=== PATIENT | male | born 1995 | race African-American/Black ===

== ENCOUNTER 2017-08-22 21:37 | Emergency (ER) | payer OTHER | END 2017-08-23 02:06 | disposition home or self-care (01) | LOC: M ED 21:37 | DX: R31.0 Gross hematuria (principal); K40.90 Unilateral inguinal hernia, without obstruction or gangrene, not specified as recurrent; G89.29 Other chronic pain; M54.9 Dorsalgia, unspecified; F41.9 Anxiety disorder, unspecified; F33.9 Major depressive disorder, recurrent, unspecified; F17.210 Nicotine dependence, cigarettes, uncomplicated | CPT/HCPCS: 76775 ==

== ENCOUNTER 2017-10-18 05:43 | Day surgery (SDC) | payer OTHER ==
[2017-10-18] MEDS: LR 1,000 ML IV (06:22)
[2017-10-18] MEDS ORDERED: PROPOFOL 200 MG/20 ML VIAL As Ordered ×2 (06:57→08:27)
[2017-10-18] MEDS ORDERED: fentaNYL 250 MCG/5 ML INJECTION (J3010) As Ordered (06:58)
[2017-10-18] MEDS ORDERED: MIDAZOLAM INJ 2 MG/2 ML VIAL (J2250) As Ordered (06:58)
[2017-10-18] MEDS ORDERED: ROCURONIUM BROMIDE 50 MG/5 ML VIAL As Ordered ×2 (06:59→08:37)
[2017-10-18] MEDS ORDERED: dexameTHASONE 4 MG/ML 1ML VIAL (J1100) As Ordered (07:01)
[2017-10-18] MEDS ORDERED: KETOROLAC 60 MG/2 ML VIAL (J1885) As Ordered (07:01)
[2017-10-18] MEDS ORDERED: LR 1,000 ML IV ×2 (07:30→10:15)
[2017-10-18] MEDS: BUPIVACAINE HCL 0.25% 30 ML VIAL As Ordered (08:28)
[2017-10-18] MEDS ORDERED: NEOSTIGMINE 10 MG/10 ML VIAL (J2710) As Ordered (09:00)
[2017-10-18] MEDS ORDERED: GLYCOPYRROLATE INJ 0.2 MG/ML 2 ML VIAL As Ordered ×2 (09:01)
[2017-10-18] MEDS ORDERED: ONDANSETRON 4MG/2ML VIAL (J2405) As Ordered (09:59)
[2017-10-18] MEDS ORDERED: fentaNYL 100 MCG/2 ML INJECTION (J3010) As Ordered (09:59)
[2017-10-18] MEDS ORDERED: PERCOCET 5MG/325MG TAB As Ordered (09:59)
[2017-10-18] MEDS: fentaNYL 100 MCG/2 ML INJECTION (J3010) IV ×3 (10:05→10:21)
[2017-10-18] MEDS: PERCOCET 5MG/325MG TAB PO ×2 (10:05→10:32)
[2017-10-18] MEDS ORDERED: METOCLOPRAMIDE INJ 10MG/2ML VIAL (J2765) IV (10:15)
[2017-10-18] MEDS ORDERED: MEPERIDINE INJ 25 MG/ML VIAL (J2175) IV (10:15)
[2017-10-18] MEDS: ONDANSETRON 4MG/2ML VIAL (J2405) IV (10:20)
[2017-10-18] MEDS ORDERED: IBUPROFEN 600 MG TAB PO ×2 (10:30→13:00)
[2017-10-18] MEDS ORDERED: NORCO, ANEXSIA 5/325MG TABLET (HYDROcodone/ACETAMINOPHEN) PO (10:30)
[2017-10-18] MEDS ORDERED: ACETAMINOPHEN TAB 650MG DOSE (2X325MG) PO (10:30)
== END 2017-10-18 11:28 | disposition home or self-care (01) ==
LOC: M SDC 11:28
DX: K40.90 Unilateral inguinal hernia, without obstruction or gangrene, not specified as recurrent (principal); F17.210 Nicotine dependence, cigarettes, uncomplicated; Z79.899 Other long term (current) drug therapy
CPT/HCPCS: 49505

== ENCOUNTER 2017-11-24 19:22 | Emergency (ER) | payer OTHER ==
[2017-11-24] MEDS: IBUPROFEN 600 MG TAB PO (21:16)
== END 2017-11-24 21:42 | disposition home or self-care (01) ==
LOC: M ED 19:22
DX: S93.401A Sprain of unspecified ligament of right ankle, initial encounter (principal); X58.XXXA Exposure to other specified factors, initial encounter; Y92.89 Other specified places as the place of occurrence of the external cause
CPT/HCPCS: 73610

== ENCOUNTER 2018-02-14 04:10 | Emergency (ER) | payer OTHER ==
[2018-02-14 05:11] LABS: HEMATOCRIT 47.7 % (42.0-52.0); HEMOGLOBIN 15.6 g/dl (13.5-17.5); MEAN CORPUSCULAR HGB CONC 32.7 g/dl (32.0-36.5); MEAN CORPUSCULAR VOLUME 82.5 fl (80.0-96.0); PLATELET COUNT, AUTOMATED 194 10^3/uL (150-450); RED BLOOD COUNT 5.78 10^6/uL (4.30-6.10); RED CELL DISTRIBUTION WIDTH 12.7 % (11.5-14.5)
[2018-02-14 05:37] LABS: AMPHETAMINES LEVEL URINE NEGATIVE (NEGATIVE); BARBITURATES URINE NEGATIVE (NEGATIVE); BENZODIAZEPINES URINE POSITIVE (NEGATIVE); CANNABINOIDS URINE NEGATIVE (NEGATIVE); COCAINE METABOLITE URINE NEGATIVE (NEGATIVE); METHADONE URINE NEGATIVE (NEGATIVE); OPIATES URINE NEGATIVE (NEGATIVE); PHENCYCLIDINE URINE NEGATIVE (NEGATIVE)
[2018-02-14 05:48] LABS: ALBUMIN 4.3 GM/DL (3.2-5.2); ALBUMIN/GLOBULIN RATIO 1.16 (1.00-1.93); ALKALINE PHOSPHATASE 128 U/L (45-117); ALT/SGPT 47 U/L (12-78); ANION GAP 5 MEQ/L (8-16); AST/SGOT 27 U/L (7-37); BILIRUBIN,DIRECT 0.1 MG/DL (0.0-0.2); BILIRUBIN,TOTAL 0.6 MG/DL (0.2-1.0); BLOOD UREA NITROGEN 15 MG/DL (7-18); CALCIUM LEVEL 8.9 MG/DL (8.5-10.1); CARBON DIOXIDE LEVEL 32 MEQ/L (21-32); CHLORIDE LEVEL 104 MEQ/L (98-107); GLOMERULAR FILTRATION RATE > 60.0 (>60); GLUCOSE, FASTING 109 MG/DL (70-100); POTASSIUM SERUM 3.9 MEQ/L (3.5-5.1); SALICYLATE LEVEL < 1.7 MG/DL (5.0-30.0); SODIUM LEVEL 141 MEQ/L (136-145)
[2018-02-14 05:50] LABS: ACETAMINOPHEN LEVEL < 2.0 UG/ML (10.0-30.0); ETHYL ALCOHOL (ETHANOL) < 0.003 % (0.000-0.010)
== END 2018-02-14 07:07 | disposition home or self-care (01) ==
LOC: M ED 04:10
DX: R45.851 Suicidal ideations (principal); F41.9 Anxiety disorder, unspecified
CPT/HCPCS: G0480

== ENCOUNTER 2018-11-03 11:23 | Emergency (ER) | payer OTHER ==
[~2018-11-03] VITALS: Ht 180.3 cm; Wt 111.4 kg
[~2018-11-03 11:23] MED LIST: CELE1CAP9 PO; MUSCLE RELAXANT PO; ZANA4CAP PO; [UNRECOGNIZED DRUG - REMARK]
[2018-11-03] MEDS ORDERED: LIDOCAINE 1% SDV 5 ML VIAL DILUENT ONE (13:15)
[2018-11-03] MEDS ORDERED: EXPOSURE KIT-ADULT 7 DAY SUPPLY PO ONE (13:15)
[2018-11-03] MEDS ORDERED: cefTRIAXone SOD 250 MG VIAL (J0696) IM ONE (13:15)
[2018-11-03] MEDS ORDERED: AZITHROMYCIN 250 MG TAB PO ONE (13:15)
[2018-11-03] MEDS ORDERED: TRUVTAB PO (13:24)
[2018-11-03] MEDS ORDERED: RALT40TA PO (13:24)
[2018-11-03 13:43] LABS: BASO % 0.3 % (0.0-1.0); EOS # 0.1 10^3/uL (0.0-0.50); EOS % 1.3 % (0.0-3.0); HEMATOCRIT 47.2 % (42.0-52.0); HEMOGLOBIN 15.4 g/dl (13.5-17.5); LYMPH # 2.3 10^3/uL (1.5-6.5); LYMPH % 32.9 % (24.0-44.0); MEAN CORPUSCULAR HGB CONC 32.6 g/dl (32.0-36.5); MEAN CORPUSCULAR VOLUME 82.7 fl (80.0-96.0); MONO # 0.5 10^3/uL (0.0-0.8); MONO % 7.8 % (0.0-5.0); NEUTROPHILS % 57.4 % (36.0-66.0); PLATELET COUNT, AUTOMATED 188 10^3/uL (150-450); RED BLOOD COUNT 5.71 10^6/uL (4.30-6.10); WHITE BLOOD COUNT 6.9 10^3/uL (4.0-10.0)
[2018-11-03 13:52] LABS: CHLAMYDIA DNA AMPLIFICATION POSITIVE (NEGATIVE); GC DNA AMPLIFICATION POSITIVE (NEGATIVE)
[2018-11-03 14:10] LABS: ALBUMIN 4.1 GM/DL (3.2-5.2); ALT/SGPT 72 U/L (12-78); BILIRUBIN,TOTAL 1.1 MG/DL (0.2-1.0); BLOOD UREA NITROGEN 15 MG/DL (7-18); CALCIUM LEVEL 8.7 MG/DL (8.5-10.1); CARBON DIOXIDE LEVEL 29 MEQ/L (21-32); CHLORIDE LEVEL 107 MEQ/L (98-107); CREATININE FOR GFR 1.24 MG/DL (0.70-1.30); GLOMERULAR FILTRATION RATE > 60.0 (>60); GLUCOSE, FASTING 96 MG/DL (70-100); POTASSIUM SERUM 4.4 MEQ/L (3.5-5.1); SODIUM LEVEL 142 MEQ/L (136-145); TOTAL PROTEIN 7.9 GM/DL (6.4-8.2)
[2018-11-03 14:37] VITALS: BP 119/68
[2018-11-04 10:28] LABS: HEPATITIS B SURFACE ANTIBODY POSITIVE (POSITIVE)
[2018-11-04 10:38] LABS: HEPATITIS B SURFACE ANTIGEN NEGATIVE (NEGATIVE)
[2018-11-04 11:06] LABS: HEPATITIS C VIRUS ABY INDEX < 0.0 INDEX (<0.8)
[2018-11-04 11:07] LABS: HIV 1&2 SCREEN CENTAUR NEGATIVE (NEGATIVE)
== END 2018-11-03 14:55 | disposition home or self-care (01) ==
LOC: M ED 11:23
DX: Z20.2 Contact with and (suspected) exposure to infections with a predominantly sexual mode of transmission (principal); N39.0 Urinary tract infection, site not specified; M54.9 Dorsalgia, unspecified; Z87.442 Personal history of urinary calculi; Z77.098 Contact with and (suspected) exposure to other hazardous, chiefly nonmedicinal, chemicals
CPT/HCPCS: 36415; 80053; 81001; 85025; 86706; 86780; 86803; 87086; 87340; 87389; 87491; 87591; 96372; 99283; J0696